=== PATIENT | male | born 1930 | race Caucasian/White ===

== ENCOUNTER 2017-07-01 08:02 | Emergency (ER) ==
[2017-07-01 08:19] VITALS: BP 176/90; TEMP 97.4; BMI 20.7
[2017-07-01 08:36] LABS: BASOPHILS % (AUTO) 0.5 % (0.0-3.0); HEMOGLOBIN 13.1 g/dl (14.0-18.0); IMMATURE GRANULOCYTE % (AUTO) 0.3 % (0.0-5.0); LYMPHOCYTES # (AUTO) 1.8 K/uL (0.60-3.4); LYMPHOCYTES % (AUTO) 22.7 (10.0-50.0); MEAN CORPUSCULAR HEMOGLOBIN 34.8 pg (27.0-31.0); MEAN CORPUSCULAR HGB CONC 35.4 (31.8-35.4); MEAN CORPUSCULAR VOLUME 98.4 fl (80.0-94.0); MONOCYTES # (AUTO) 0.5 K/uL (0.4-2.0); MONOCYTES % (AUTO) 6.3 (0-10); NEUTROPHILS # (AUTO) 5.5 K/ul (2.0-6.9); NEUTROPHILS % (AUTO) 70.2; PLATELET COUNT 159 10^3/uL (140-440); RED BLOOD COUNT 3.76 10^6/ul (4.70-6.10)
--- NOTE | 2017-07-01 08:57 | CT ---
2 Exam: CT brain without contrast Clinical indication: Fall with head injury. Comparison: None available. TECHNIQUE: Axial unenhanced CT images from the skull base through the brain were obtained. Coronal and sagital reformats were performed. Findings: There is no evidence of intra or extra-axial hemorrhage. There are global atrophic changes. There is moderate periventricular hypodensities consistent with moderate chronic small vessel ischemic changes.There is no evidence of mass, infarct or midline shif t. The ventricles and basilar cisterns are within normal limits. Only the superior aspects of the bilateral maxillary sinuses are visualized, but there are soft tiss ue changes suggesting acute sinusitis. There are soft tissue changes within the frontal, sphenoid a nd ethmoid sinuses as well suggesting sinusitis. The visualized bony structures are unremarkable. Impression: 1. No acute intracranial abnormality. 2. Moderate chronic small vessel ischemic changes. 3. Findings suggest toussaint sinusitis.
[2017-07-01 09:12] LABS: ALBUMIN 3.5 g/dL (3.4-5.0); ALBUMIN/GLOBULIN RATIO 1.17; BILIRUBIN,TOTAL 0.69 mg/dL (0.00-1.20); BUN/CREATININE RATIO 15.66; CALCIUM 9.8 mg/dL (8.2-10.2); CREATININE 0.83 mg/dL (0.60-1.10); TOTAL PROTEIN 6.5 g/dL (5.8-8.1); TROPONIN I 0.457 ng/ml (0.0000-0.4000)
--- NOTE | 2017-07-01 09:12 | CT ---
Exam: CT cervical spine without IV contrast. Clinical indication: Fall with neck pain. TECHNIQUE: Axial unenhanced CT images from the upper thoracic spine through the skull base were obt ained followed by coronal and sagittal reformats. Findings: There is no prevertebral soft tissue swelling. The alignment of the cervical spine is within normal limits. The odontoid is intact. The atlanto-occipital and atlantoaxial articulations are properly situated. There is no evidence of acute cervical fracture. There are degenerative changes at the articulation between the odontoid and the anterior arch of C1. At the C2-C3 level there is asymmetric left greater than right facet and uncovertebral hypertrophic degenerative changes, but no spinal stenosis or neural foraminal narrowing. At the C3-C4 level there is bilateral facet and uncovertebral degenerative changes, causing mild zunilda ateral neural foraminal narrowing, but no spinal stenosis. At the C4-C5 level there is a posterior central disc bulge associate with bilateral facet and uncove rtebral degenerative changes greater on the left than the right, causing mild to moderate left-sided neural foraminal narrowing. At the C5-C6 level there is a posterior disc osteophyte complex associated with bilateral facet and uncovertebral degenerative changes, causing moderate to severe right and moderate left neural forami nal narrowing, but no spinal stenosis. At the C6-C7 level there is moderate degenerative disc disease associate with a posterior disc osteo phyte complex and bilateral facet and uncovertebral degenerative changes, causing moderate to severe bilateral neural foraminal narrowing. At the C7-T1 level there is some asymmetric right greater than left facet degenerative changes, but no spinal stenosis or neural foraminal narrowing. The visualized pulmonary parenchyma is unremarkable. The visualized soft tissues are unremarkable. Impression: 1. No acute cervical fracture. 2. Multilevel degenerative changes with neural foraminal narrowing, as described above on the level by level basis.
[2017-07-01 09:14] LABS: CREATINE KINASE MB 4.2 ng/ml (0.0-3.6)
--- NOTE | 2017-07-01 09:20 | CT ---
Exam: CT lumbar spine without contrast. Clinical indication: Fall with back pain. TECHNIQUE: Axial unenhanced CT images from the lower thoracic spine through the mid sacrum were obt ained followed by coronal and sagittal reformats. Findings: There are five non-rib bearing lumbar vertebra. The alignment of the lumbar spine is within normal limits. There are no acute fractures within the visualized bony structures. At the T12-L1 level there is some mild degenerative disc disease, but no spinal stenosis or neural f oraminal narrowing. At the L1-L2 level there is some mild degenerate disc disease, but no spinal stenosis or neural fora doug narrowing. At the L2-L3 level there is a mild posterior disc osteophyte complex associate with mild bilateral f acet degenerative changes, but no spinal stenosis or neural foraminal narrowing. At the L3-L4 level there is a mild posterior disc osteophyte complex associate with bilateral facet hypertrophic degenerative changes, causing mild bilateral neural foraminal narrowing, but no spinal stenosis. At the L4-L5 level there is a moderate posterior disc osteophyte complex which is asymmetric greater on the right associate with a unilateral right-sided pars interarticularis defect and asymmetric ri ght greater than left facet hypertrophic degenerative changes, causing moderate to severe bilateral neural foraminal narrowing. At the L5 S1 level there is some bilateral facet hypertrophic degenerative changes, but no definite spinal stenosis or neural foraminal narrowing. There is atherosclerotic vascular calcifications. The remainder the visualized soft tissues are unr emarkable. Impression: 1. No acute lumbar fracture. 2. Chronic right-sided unilateral L4 pars interarticularis defect, with out evidence of spondylolis thesis. 3. Multilevel degenerative changes with neural foraminal narrowing, as described above on the level bilevel bases.
--- NOTE | 2017-07-01 09:23 | CT ---
EXAM: CT thoracic spine without contrast HISTORY: Fall COMPARISON: None TECHNIQUE: CT thoracic spine performed without intravenous contrast. Coronal and sagittal reformat deepthi images obtained. FINDINGS: Vertebral bodies normal in height. No fracture. No subluxation. Mild moderate chronic discogenic degenerative disease with intervertebral disc space narrowing, marginal osteophyte format ion. Central canal is grossly patent. Please see separate report CT chest and CT lumbar spine. IMPRESSION: No fracture or subluxation.
--- NOTE | 2017-07-01 09:23 | CT ---
EXAM: CT chest without contrast HISTORY: Fall COMPARISON: None TECHNIQUE: CT chest performed without intravenous contrast. Coronal and sagittal reformatted image s obtained. FINDINGS: Thyroid and thoracic inlet appear normal. Heart normal in size. Trace anterior pericard ial fluid or pericardial thickening measuring simple fluid attenuation. Coronary calcifications. E valuation for lymphadenopathy limited without contrast. No lymphadenopathy identified. Calcified m ediastinal and hilar lymph nodes, consistent with old granulomatous disease. Esophagus unremarkable . Aorta normal in caliber. Gallbladder mildly distended. No visible gallstones. Mild area of rig ht renal cortical scarring. No acute abnormalities of the bones. Degenerative change in the spine. Debris in the right and left mainstem bronchus. Mild lower airway. Lower airway thickening. Vance ateral lower airway thickening. No airspace consolidation. No pleural effusion. No pneumothorax. Mild right basilar scarring and/or atelectasis.. Mild scattered scarring and/or atelectasis. Gran ulomatous calcification. There is a 7 mm pulmonary nodule left lung base image 54. 5 mm clustered n odularity or scarring right lung image 39. Several additional pulmonary micronodules and/or scarring are seen, for example left lung image 40. IMPRESSION: 1. No acute traumatic injury identified in the chest. 2. Lower airway thickening suggesting infectious/inflammatory bronchiolitis. 3. Debris in the right and left mainstem bronchus. 4. Several pulmonary nodules measuring up to [address] chest follow-up 6 months for reeval uation. 5. Mild nonspecific gallbladder distension. Findings can be correlate with right upper quadrant ul trasound as clinically indicated.
[2017-07-01 09:29] LABS: BILIRUBIN,URINE Negative (NEGATIVE); KETONES,URINE 2+ (NEGATIVE); LEUKOCYTE ESTERASE ,URINE Negative (NEGATIVE); NITRITE,URINE Negative (NEGATIVE); PH,URINE 6.5 (5-9); PROTEIN,URINE Negative (NEGATIVE); URINE, BLOOD Trace-intact (NEGATIVE)
[2017-07-01 09:31] LABS: ADD URINE MICROSCOPIC YES
--- NOTE | 2017-07-01 10:20 | ED.PDOC ---
General ED Provider: Dr. KATALINA LINO Chief Complaint: Fall Stated Complaint: fall Time Seen by Physician: 08:00 Mode of Arrival: Ambulance Information Source: Patient Exam Limitations: No limitations Primary Care Provider: NATALIA ANGEL Nursing and Triage Documentation Reviewed and Agree: Yes Trauma/Injury Complaint Exam - Trauma Complaint/Exam Location of Pain or Injury: Reports: Neck, Chest, Back Mechanism of Injury: Reports: Fall (was in the floor he called 911 [facility] arrived pt on floor last last ) Onset/Duration: 10 hrs Symptoms Are: Still present Timing of Treatment: Delayed Initial Severity: Mild Current Severity: Mild Character: Reports: Aching Alleviating: Reports: Rest Associated Signs and Symptoms: Denies: LOC, Confusion, Memory loss, Lethargy, Vomiting, Bleeding, Bruising, Swelling, Extremity disuse, Painful respiration, Hoarseness, Dysphagia, Hemoptysis, Significant blood loss Nexus Low Risk Criteria: No post-midline CS tender (slipped and fell), No evidence of intoxicat., No Altered LOC, No focal neuro deficit, No distracting injuries Immobilization Removed Post Exam: Yes (after log roll no point tnder ness noted and the board was removed ) Glascow Coma Scale (see protocol): 15 c color remained till report was obtained Compartment Syndrome Risk Factors: Present: Pain Trauma Findings: Present: Neck tenderness (back pain) Review of Systems - Review Of Systems Constitutional: Reports: No symptoms Eyes: Reports: No symptoms Ears, Nose, Mouth, Throat: Reports: No symptoms Respiratory: Reports: No symptoms Cardiac: Reports: No symptoms GI: Reports: No symptoms : Reports: No symptoms Musculoskeletal: Reports: Back pain Skin: Reports: No symptoms Neurological: Reports: No symptoms Endocrine: Reports: No symptoms Hematologic/Lymphatic: Reports: No symptoms All Other Systems: Reviewed and Negative Past Medical History - Past Medical History Previously Healthy: Yes Endocrine: Reports: DM 2 Cardiovascular: Reports: Hypertension Respiratory: Reports: None Hematological: Reports: None Gastrointestinal: Reports: None Genitourinary: Reports: None Neuro/Psych: Reports: None Musculoskeletal: Reports: None Cancer: Reports: None - Surgical History General Surgical History: Reports: None - Family History Family History: Reports: None - Social History Smoking Status: Never smoker Hx Substance Use: No Alcohol Screening: None Physical Exam - Physical Exam Appearance: Well-appearing, No pain distress, Well-nourished Eyes: PERM, EOMI, Conjunctiva clear ENT: Ears normal, Nose normal, Oropharynx normal Respiratory: Airway patent, Breath sounds clear, Breath sounds equal, Respirations nonlabored Cardiovascular: RRR, Pulses normal, No rub, No murmur GI/: Soft, Nontender, No masses, Bowel sounds normal, No Organomegaly Musculoskeletal: Normal strength, ROM intact, No edema, No calf tenderness Skin: Warm, Dry, Normal color Neurological: Sensation intact, Motor intact, Reflexes intact, Cranial nerves intact, Alert, Oriented Psychiatric: Affect appropriate, Mood appropriate Physician Notification - Case Discussed Physician Notified: pmd Time of Notification: 10:22 (may go home) Critical Care Note - Critical Care Note Total Time (mins): 0 Course - Course Hematology/Chemistry: 07/01/17 08:27 07/01/17 08:27 Orders, Labs, Meds: Lab Review 07/01/17 07/01/17 08:27 09:15 WBC 7.80 RBC 3.76 L Hgb 13.1 L Hct 37.0 L MCV 98.4 H MCH 34.8 H MCHC 35.4 RDW Coeff of Em 13.2 Plt Count 159 Immature Gran % (Auto) 0.3 Neut % (Auto) 70.2 Lymph % (Auto) 22.7 [place] % (Auto) 6.3 Eos % (Auto) 0.0 Baso % (Auto) 0.5 Immature Gran # (Auto) 0.0 Neut # 5.5 Lymph # 1.8 [place] # 0.5 Eos # 0.0 Baso # 0.0 Sodium 140 Potassium 4.0 Chloride 100 Carbon Dioxide 28 Anion Gap 16.0 BUN 13 Creatinine 0.83 Estimated GFR (MDRD) 88.00 BUN/Creatinine Ratio 15.66 Glucose 392 H Calcium 9.8 Total Bilirubin 0.69 AST 62 H ALT 57 Alkaline Phosphatase 109 Total Creatine Kinase 163 CK-MB (CK-2) 4.2 H CK-MB (CK-2) % 2.63393 Troponin I 0.4570 H Total Protein 6.5 Albumin 3.5 Globulin 3.0 Albumin/Globulin Ratio 1.17 Urine Color Yellow Urine Clarity Clear Urine pH 6.5 Ur Specific [place] 1.015 Urine Protein Negative Urine Glucose (UA) 2+ Urine Ketones 2+ Urine Blood Trace-intact Urine Nitrite Negative Urine Bilirubin Negative Urine Urobilinogen 0.2 Ur Leukocyte Esterase Negative Urine Microscopic RBC 0-2 Ur Squamous Epith Cells Not present Orders Category Date Time Status EKG-(ED ONLY) Stat CARDIO 07/01/17 08:18 Completed CBC W/ AUTO DIFF Stat LAB 07/01/17 08:27 Completed COMPREHENSIVE METABOLIC PANEL Stat LAB 07/01/17 08:27 Completed CREATINE KINASE Stat LAB 07/01/17 08:27 Completed TROPONIN I Stat LAB 07/01/17 08:27 Completed URINALYSIS C & S IF INDICATED Stat LAB 07/01/17 09:[address] CERVICAL SPINE W/O CONTRAST Stat RADS 07/01/17 08:[address] CHEST W/O CONTRAST Stat RADS 07/01/17 08:[address] HEAD W/O CONTRAST Stat RADS 07/01/17 08:[address] LUMBAR SPINE W/O CONTRAST Stat RADS 07/01/17 08:[address] THORACIC SPINE W/O CONTRAST Stat RADS 07/01/17 08:17 Completed Vital Signs: Temp Pulse Resp BP Pulse Ox 07/01/17 08:03 97.4 F L 63 20 176/90 H 98 Departure - Departure Time of Disposition: 10:21 Disposition: HOME SELF-CARE Discharge Problem: Fall Qualifiers: Encounter type: initial encounter Qualifier Code: (W19.XXXA) Unspecified fall, initial encounter Instructions: Fall Prevention for Older Adults (ED), Fall Prevention (ED) Condition: Good Pt referred to PMD for follow-up: Yes Additional Instructions: Please call your Family Physician as soon as possible to schedule a follow-up appointment. Allergies/Adverse Reactions: Allergies naproxen [From Naprosyn] Adverse Reaction (Verified 07/01/17 08:20) tetanus toxoid, adsorbed Adverse Reaction (Verified 07/01/17 08:20)
--- NOTE | 2017-07-01 13:41 | DI ---
EXAM: Right ankle. [facility] HISTORY: Fall, pain COMPARISON: None FINDINGS: No fracture or dislocation. Moderate osteoarthritis about the ankle with osteophyte form ation. Moderate osteoarthritis of the midfoot. Small calcaneal spurs. Bones appear demineralized. Atherosclerotic vascular calcification. IMPERSSION: 1. No fracture or dislocation. 2. Chronic and degenerative changes as described.
--- NOTE | 2017-07-01 14:08 | DI ---
EXAM: Left ankle. [place] HISTORY: Fall, pain COMPARISON: None FINDINGS: No fracture or dislocation. Well marginated ossification near the distal tibia may be du e to old trauma or ossification center. Mild to moderate osteoarthritis of the ankle. Mild to mode rate osteoarthritis of the midfoot. Small calcaneal spurs. Atherosclerosis. IMPERSSION: 1. No fracture or dislocation. 2. Chronic and degenerative changes as described.
== END 2017-07-01 12:00 | disposition home or self-care (01) ==
LOC: ED 08:02
DX: M54.2 Cervicalgia (principal); M54.9 Dorsalgia, unspecified; R07.89 Other chest pain; I10 Essential (primary) hypertension; E11.9 Type 2 diabetes mellitus without complications; W01.0XXA Fall on same level from slipping, tripping and stumbling without subsequent striking against object, initial encounter
CPT/HCPCS: 36415; 80053; 81001; 82550; 82553; 84484; 85025; 93005; 93010; 99283